=== PATIENT | female | born 1960 | race Caucasian/White ===

== ENCOUNTER 2019-05-23 11:06 | Emergency (ER) | payer OTHER ==
[~2019-05-23] VITALS: Ht 160 cm; Wt 83.9 kg
[~2019-05-23 11:06] MED LIST: CIPR500 PO; PROM25 PO
[2019-05-23] MEDS ORDERED: SERT100 PO (11:23)
[2019-05-23] MEDS ORDERED: ENAL5 PO (11:23)
[2019-05-23] MEDS ORDERED: MELO7.5 PO (11:25)
[2019-05-23] MEDS ORDERED: CYCL10 PO (11:26)
[2019-05-23] MEDS ORDERED: ALPR.25 PO (11:26)
[2019-05-23] MEDS ORDERED: HYDR1TAB94 PO (11:54)
== END 2019-05-23 12:03 | disposition home or self-care (01) ==
LOC: ER 11:06
DX: S43.402A Unspecified sprain of left shoulder joint, initial encounter (principal); W07.XXXA Fall from chair, initial encounter; Z88.0 Allergy status to penicillin; Z88.6 Allergy status to analgesic agent; Z88.2 Allergy status to sulfonamides; Z88.1 Allergy status to other antibiotic agents; Z88.8 Allergy status to other drugs, medicaments and biological substances; Z79.899 Other long term (current) drug therapy; I10 Essential (primary) hypertension
CPT/HCPCS: 73030; 99283-25